=== PATIENT | male | born 1990 | race Caucasian/White ===

== ENCOUNTER 2024-07-01 23:35 | Emergency (ER) | payer MEDICAID, OTHER ==
[~2024-07-01] VITALS: Ht 180.3 cm; Wt 89.0 kg
[2024-07-02 00:48] LABS: Basophils # (auto) 0.1 10 ^3/uL (0-0.2); Basophils % (auto) 0.9 % (0.0-2.0); Eosinophils # (auto) 0.1 10 ^3/uL (0-0.8); Hematocrit 48.2 % (41.0-53.0); Hemoglobin 16.4 g/dL (13.5-17.5); Lymphocytes # (auto) 1.4 10 ^3/uL (0.4-5.4); Lymphocytes % (auto) 12.6 % (10.0-50.0); Mean Corpuscular Volume 82.4 fL (80.0-100.0); Monocytes # (auto) 0.7 10 ^3/uL (0-1.3); Neutrophils % (auto) 79.5 % (37.0-80.0); Red Blood Cells 5.85 10^6/uL (4.5-5.90); Red Cell Distribution Width 14.1 % (11.8-14.3); White Blood Cell 11.3 10^3/uL (4.4-10.8)
[2024-07-02 01:13] LABS: Alanine Aminotransferase 20 U/L (7-40); Albumin 4.6 g/dL (3.2-4.8); Alkaline Phosphatase 98 U/L (46-116); Anion Gap 10 (5-15); Aspartate Aminotransferase < 8 U/L (13-40); BUN/Creatinine Ratio 12.7 (10.0-20.0); Blood Urea Nitrogen 13 mg/dL (9-23); Calcium 9.6 mg/dL (8.7-10.4); Carbon Dioxide 22 mmol/L (20-30); Chloride 107 mmol/L (98-107); Glucose 109 mg/dL (74-106); Lipase 38 U/L (12-53); Sodium 139 mmol/L (136-145)
[2024-07-02 01:14] LABS: Bilirubin, Total 1.4 mg/dL (0.2-1.0); Total Protein 7.6 g/dL (5.7-8.2)
[2024-07-02] MEDS ORDERED: PANT40TA2 PO (03:16)
[2024-07-02] MEDS ORDERED: AZITTAB2 PO (03:16)
[2024-07-02 03:24] VITALS: BP 129/85; TEMP 99.3
[2024-07-02 03:28] VITALS: PULSE 100; RESP 20; O2SAT 98
== END 2024-07-02 03:39 | disposition home or self-care (01) ==
LOC: EDBD 23:35 → ER 23:35
DX: K29.00 Acute gastritis without bleeding (principal); J40 Bronchitis, not specified as acute or chronic
CPT/HCPCS: 36415; 71045; 74176; 80053; 83690; 85025; 93005